=== PATIENT | male | born 1965 | race Caucasian/White ===

== ENCOUNTER 2022-04-14 20:08 | Observation (INO) | payer OTHER ==
[~2022-04-14] VITALS: Ht 172.7 cm; Wt 152.4 kg
[~2022-04-14 20:08] MED LIST: ANORO ELLIPTA1 EACH INH; ASPIRIN EC81 MG PO; BUSPIRONE HCL30 MG PO; CITALOPRAM HBR40 MG PO; COREG12.5 MG PO; FENOFIBRATE160 MG PO; GLUCOPHAGE 500500 MG PO; HYDROXYZINE HCL50 MG PO; LIPITOR80 MG PO; NITROSTAT0.4 MG SL; POTASSIUM CHLO10 MEQ PO; PRINIVIL20 MG PO; QUETIAPINE FUMA25 MG PO; SINGULAIR10 MG PO; TIROSINT25 MCG PO; WELLBUTRIN SR150 M1 PO; ZANAFLEX4 M1 PO
[2022-04-14 20:44] LABS: HEMOGLOBIN 13.3 gm/dl (14.0-17.5); RED BLOOD COUNT 4.34 M/UL (4.20-5.50); WHITE BLOOD COUNT 9.2 K/UL (4.5-11.0)
[2022-04-14 21:15] LABS: BUN/CREATININE RATIO 17 (0-10)
[2022-04-15 04:23] LABS: HEMOGLOBIN 13.3 gm/dl (14.0-17.5); RED BLOOD COUNT 4.37 M/UL (4.20-5.50)
[2022-04-15 04:48] LABS: BUN/CREATININE RATIO 13 (0-10)
[2022-04-15] MEDS ORDERED: CLONIDINE HCL0.1 MG PO (10:37)
[2022-04-15] MEDS ORDERED: DICYCLOMINE HCL10 MG PO (10:37)
[2022-04-15] MEDS ORDERED: GLIMEPIRIDE4 MG PO (10:38)
[2022-04-15] MEDS ORDERED: LOPERAMIDE2 MG PO (10:38)
[2022-04-15] MEDS ORDERED: DOCUSATE SODIU100 MG PO (10:38)
[2022-04-15] MEDS ORDERED: ONDANSETRON ODT4 MG PO (10:39)
[2022-04-15] MEDS ORDERED: MULTIVITAMIN1 EACH PO (10:39)
[2022-04-15] MEDS ORDERED: CYCLOBENZAPRINE10 MG PO (10:39)
[2022-04-15] MEDS ORDERED: FOLIC ACID1 MG PO (10:40)
[2022-04-15] MEDS ORDERED: HYDROXYZINE PAM25 MG PO (10:40)
[2022-04-15] MEDS ORDERED: IBU400 MG PO (10:41)
[2022-04-15] MEDS ORDERED: OMEPRAZOLE20 MG PO (10:41)
[2022-04-15] MEDS ORDERED: MELATONIN5 M2 PO (10:41)
[2022-04-15] MEDS ORDERED: B-1100 MG PO (10:41)
[2022-04-15] MEDS ORDERED: CRESTOR40 MG PO (10:42)
[2022-04-15] MEDS ORDERED: PROZAC20 MG PO (10:42)
[2022-04-15] MEDS ORDERED: ISOSORBIDE MONO60 MG PO (10:43)
[2022-04-15] MEDS ORDERED: PROAIR HFA8.5 GM INH (10:43)
--- NOTE | 2022-04-15 14:10 | NUR ---
[facility] for transportation. pt will be returning to their facility
== END 2022-04-15 15:20 | disposition home or self-care (01) ==
LOC: ER1 20:08 → CDU 23:52 → MED SURG 4 23:52
PROVIDERS: Physician Assistant; Student in an Organized Health Care Education/Training Program; ADMIT Internal Medicine
DX: R07.89 Other chest pain (principal); J96.11 Chronic respiratory failure with hypoxia; I25.10 Atherosclerotic heart disease of native coronary artery without angina pectoris; I10 Essential (primary) hypertension; I25.2 Old myocardial infarction; E11.9 Type 2 diabetes mellitus without complications; J44.9 Chronic obstructive pulmonary disease, unspecified; E78.5 Hyperlipidemia, unspecified; E03.9 Hypothyroidism, unspecified; F17.210 Nicotine dependence, cigarettes, uncomplicated; F10.10 Alcohol abuse, uncomplicated; E66.01 Morbid (severe) obesity due to excess calories; Z68.43 Body mass index [BMI] 50.0-59.9, adult; Z99.81 Dependence on supplemental oxygen; Z95.5 Presence of coronary angioplasty implant and graft; Z79.890 Hormone replacement therapy; Z79.84 Long term (current) use of oral hypoglycemic drugs; Z79.82 Long term (current) use of aspirin; Z79.899 Other long term (current) drug therapy
CPT/HCPCS: 36415; 71045; 80053; 80061; 82550; 82553; 83036; 83735; 84439; 84443; 84484; 85025; 93005; 96372; 99285; G0378; J1644

== ENCOUNTER 2022-04-19 04:46 | Emergency (ER) | payer OTHER ==
[~2022-04-19 04:46] MED LIST changes: +B-1100 MG PO; +CLONIDINE HCL0.1 MG PO; +CRESTOR40 MG PO; +CYCLOBENZAPRINE10 MG PO; +DICYCLOMINE HCL10 MG PO; +DOCUSATE SODIU100 MG PO; +FOLIC ACID1 MG PO; +GLIMEPIRIDE4 MG PO; +HYDROXYZINE PAM25 MG PO; +IBU400 MG PO; +ISOSORBIDE MONO60 MG PO; +LOPERAMIDE2 MG PO; +MELATONIN5 M2 PO; +MULTIVITAMIN1 EACH PO; +OMEPRAZOLE20 MG PO; +ONDANSETRON ODT4 MG PO; +PROAIR HFA8.5 GM INH; +PROZAC20 MG PO
[2022-04-19 05:19] LABS: HEMOGLOBIN 14.7 gm/dl (14.0-17.5); RED BLOOD COUNT 4.78 M/UL (4.20-5.50); WHITE BLOOD COUNT 8.9 K/UL (4.5-11.0)
[2022-04-19 06:03] LABS: BUN/CREATININE RATIO 20 (0-10)
[2022-04-19] MEDS ORDERED: VISTARIL25 MG PO (09:00)
== END 2022-04-19 09:40 | disposition home or self-care (01) ==
LOC: ER1 04:46
PROVIDERS: Family Medicine
DX: R07.89 Other chest pain (principal); F41.9 Anxiety disorder, unspecified; E11.9 Type 2 diabetes mellitus without complications; E78.5 Hyperlipidemia, unspecified; I10 Essential (primary) hypertension; J44.9 Chronic obstructive pulmonary disease, unspecified; F17.210 Nicotine dependence, cigarettes, uncomplicated; Z95.5 Presence of coronary angioplasty implant and graft; Z87.898 Personal history of other specified conditions
CPT/HCPCS: 71045; 80053; 82550; 82553; 84484; 85025; 93005; 96374; 99285; J3411; J7030; Q0177

== ENCOUNTER 2022-04-21 20:54 | Emergency (ER) | payer OTHER ==
[~2022-04-21 20:54] MED LIST changes: +VISTARIL25 MG PO
[2022-04-21 21:16] LABS: HEMOGLOBIN 13.9 gm/dl (14.0-17.5); RED BLOOD COUNT 4.48 M/UL (4.20-5.50); WHITE BLOOD COUNT 10.1 K/UL (4.5-11.0)
[2022-04-21 21:39] LABS: BUN/CREATININE RATIO 24 (0-10)
== END 2022-04-22 04:20 | disposition home or self-care (01) ==
LOC: ER1 20:54
PROVIDERS: Nurse Practitioner
DX: R07.89 Other chest pain (principal); I11.9 Hypertensive heart disease without heart failure; E11.9 Type 2 diabetes mellitus without complications; I25.2 Old myocardial infarction; E78.5 Hyperlipidemia, unspecified; F17.210 Nicotine dependence, cigarettes, uncomplicated; J44.9 Chronic obstructive pulmonary disease, unspecified; E66.01 Morbid (severe) obesity due to excess calories; Z95.5 Presence of coronary angioplasty implant and graft
CPT/HCPCS: 71045; 80053; 81001; 82550; 82553; 83735; 83880; 84100; 84484; 85025; 93005; 99285

== ENCOUNTER 2022-04-27 03:34 | Inpatient (IN) | payer OTHER ==
[~2022-04-27] VITALS: Ht 172.7 cm; Wt 153.3 kg
[2022-04-27 04:28] LABS: HEMOGLOBIN 14.2 gm/dl (14.0-17.5); RED BLOOD COUNT 4.79 M/UL (4.20-5.50); WHITE BLOOD COUNT 8.5 K/UL (4.5-11.0)
[2022-04-27 04:57] LABS: BUN/CREATININE RATIO 17 (0-10)
[2022-04-27] MEDS ORDERED: ADVAIR 500-501 EACH INH (09:59)
[2022-04-27] MEDS ORDERED: TRAZODONE HCL50 MG PO (10:01)
[2022-04-28 06:09] LABS: HEMOGLOBIN 14.6 gm/dl (14.0-17.5); RED BLOOD COUNT 4.74 M/UL (4.20-5.50); WHITE BLOOD COUNT 9.7 K/UL (4.5-11.0)
[2022-04-28 06:31] LABS: BUN/CREATININE RATIO 20 (0-10)
[2022-04-28 08:52] LABS: BUN/CREATININE RATIO 18 (0-10)
--- NOTE | 2022-04-28 10:15 | NUR ---
MULTIPLE ATTEMPTS TO GET IV ACCESS DONE BY FLOOR NURSES. NETTING INSPECTOR NURSE ATTEMPTING TO OBTAIN IV.
--- NOTE | 2022-04-28 10:30 | NUR ---
OIL FILTERS INSPECTOR NURSE TRIED IV TWICE, NO SUCCESS.
[2022-04-29 07:30] LABS: HEMOGLOBIN 13.5 gm/dl (14.0-17.5); RED BLOOD COUNT 4.58 M/UL (4.20-5.50); WHITE BLOOD COUNT 10.6 K/UL (4.5-11.0)
[2022-04-29 07:40] LABS: BUN/CREATININE RATIO 20 (0-10)
--- NOTE | 2022-04-29 13:21 | NUR ---
REPORT GIVEN TO VAENSSA AT [address]
== END 2022-04-29 15:04 | disposition short-term general hospital (02) | DRG 287 ==
LOC: ER1 03:34 → MED SURG 4 07:23 → CDU 07:23 → MED SURG 4 21:54 → PROG CARE 04-28 14:46
PROVIDERS: Internal Medicine; Physician Assistant; ADMIT Internal Medicine
PROC: 4A023N7 Measurement of Cardiac Sampling and Pressure, Left Heart, Percutaneous Approach (ICD-10-PCS; principal; 2022-04-28)
PROC: B2111ZZ Fluoroscopy of Multiple Coronary Arteries using Low Osmolar Contrast (ICD-10-PCS; 2022-04-28)
PROC: B24BZZZ Ultrasonography of Heart with Aorta (ICD-10-PCS; 2022-04-29)
DX: I25.110 Atherosclerotic heart disease of native coronary artery with unstable angina pectoris (principal); E87.2 Acidosis; J96.11 Chronic respiratory failure with hypoxia; Z20.822 Contact with and (suspected) exposure to COVID-19; Z68.43 Body mass index [BMI] 50.0-59.9, adult; E87.5 Hyperkalemia; J44.9 Chronic obstructive pulmonary disease, unspecified; F10.10 Alcohol abuse, uncomplicated; F31.9 Bipolar disorder, unspecified; F41.9 Anxiety disorder, unspecified; F17.210 Nicotine dependence, cigarettes, uncomplicated; G47.33 Obstructive sleep apnea (adult) (pediatric); E78.5 Hyperlipidemia, unspecified; E03.9 Hypothyroidism, unspecified; E66.01 Morbid (severe) obesity due to excess calories; Z99.81 Dependence on supplemental oxygen; Z79.01 Long term (current) use of anticoagulants; Z79.82 Long term (current) use of aspirin; Z95.5 Presence of coronary angioplasty implant and graft; Z90.49 Acquired absence of other specified parts of digestive tract; Z83.3 Family history of diabetes mellitus; Z82.49 Family history of ischemic heart disease and other diseases of the circulatory system
CPT/HCPCS: ECHO; 36415; 71045; 80048; 80053; 82550; 82553; 82962; 83735; 84132; 84484; 85025; 85027; 85730; 93005; 93306; 94640; 94660; 94664; 94760; 96365; 96375; 96376; 99152; 99153; 99285; C1769; G0378; J0610; J1335; J1644; J2250; J2370; J3010; J7040; Q0177; Q9957; Q9967

== ENCOUNTER 2022-06-21 11:29 | Observation (INO) | payer OTHER ==
[~2022-06-21] VITALS: Ht 172.7 cm; Wt 149.7 kg
[~2022-06-21 11:29] MED LIST changes: +ADVAIR 500-501 EACH INH; +LEVOTHYROXINE25 MCG PO; -TIROSINT25 MCG PO; +TRAZODONE HCL100 MG PO
[2022-06-21 12:06] LABS: HEMOGLOBIN 12.6 gm/dl (14.0-17.5); RED BLOOD COUNT 4.47 M/UL (4.20-5.50); WHITE BLOOD COUNT 10.8 K/UL (4.5-11.0)
[2022-06-21 12:45] LABS: BUN/CREATININE RATIO 16 (0-10)
[2022-06-21] MEDS ORDERED: LISINOPRIL10 MG PO (17:30)
[2022-06-21] MEDS ORDERED: ELIQUIS5 MG PO (17:33)
[2022-06-22 02:31] LABS: HEMOGLOBIN 11.5 gm/dl (14.0-17.5); RED BLOOD COUNT 4.11 M/UL (4.20-5.50); WHITE BLOOD COUNT 8.3 K/UL (4.5-11.0)
[2022-06-22 02:59] LABS: BUN/CREATININE RATIO 16 (0-10)
[2022-06-22] MEDS ORDERED: LIPITOR80 MG PO (12:34)
[2022-06-22] MEDS ORDERED: ISOSORBIDE MONO60 MG PO (12:34)
[2022-06-22] MEDS ORDERED: LISINOPRIL10 MG PO (12:34)
[2022-06-22] MEDS ORDERED: ASPIRIN EC81 MG PO (12:34)
[2022-06-22] MEDS ORDERED: ELIQUIS5 MG PO (12:34)
[2022-06-22] MEDS ORDERED: COREG12.5 MG PO (12:34)
[2022-06-22] MEDS ORDERED: LEVOTHYROXINE25 MCG PO (12:34)
== END 2022-06-22 21:09 | disposition other institution (70) ==
LOC: ER1 11:29 → M/S 16:30 → CDU 16:30 → M/S 18:20
PROVIDERS: Physician Assistant; ADMIT Internal Medicine
DX: R07.89 Other chest pain (principal); I25.10 Atherosclerotic heart disease of native coronary artery without angina pectoris; I10 Essential (primary) hypertension; E78.5 Hyperlipidemia, unspecified; J44.9 Chronic obstructive pulmonary disease, unspecified; E03.9 Hypothyroidism, unspecified; G47.33 Obstructive sleep apnea (adult) (pediatric); F17.210 Nicotine dependence, cigarettes, uncomplicated; E11.9 Type 2 diabetes mellitus without complications; F10.10 Alcohol abuse, uncomplicated; E66.01 Morbid (severe) obesity due to excess calories; Z68.43 Body mass index [BMI] 50.0-59.9, adult; Z79.01 Long term (current) use of anticoagulants; Z79.51 Long term (current) use of inhaled steroids; Z79.82 Long term (current) use of aspirin; Z79.890 Hormone replacement therapy; Z79.899 Other long term (current) drug therapy; Z86.718 Personal history of other venous thrombosis and embolism; Z86.711 Personal history of pulmonary embolism; Z95.1 Presence of aortocoronary bypass graft; Z95.5 Presence of coronary angioplasty implant and graft; Z91.018 Allergy to other foods
CPT/HCPCS: 71045; 80048; 80053; 82550; 82553; 82962; 83690; 83735; 84484; 85025; 85379; 93005; 94660; 94664; 94760; 96374; 96375; 99285; G0378; J2405; J3411; J3475; J7030; Q9957; Q9967

== ENCOUNTER 2022-07-24 17:08 | Emergency (ER) | payer OTHER ==
[~2022-07-24 17:08] MED LIST changes: +ELIQUIS5 MG PO; +LISINOPRIL10 MG PO
[2022-07-24 20:12] LABS: HEMOGLOBIN 13.6 gm/dl (14.0-17.5); RED BLOOD COUNT 4.87 M/UL (4.20-5.50); WHITE BLOOD COUNT 13.3 K/UL (4.5-11.0)
[2022-07-24 20:25] LABS: BUN/CREATININE RATIO 21 (0-10)
== END 2022-07-24 22:11 | disposition home or self-care (01) ==
LOC: ER1 17:08
PROVIDERS: Nurse Practitioner
DX: R10.9 Unspecified abdominal pain (principal); R10.31 Right lower quadrant pain; E66.9 Obesity, unspecified; I25.2 Old myocardial infarction; E11.9 Type 2 diabetes mellitus without complications; E78.5 Hyperlipidemia, unspecified; I10 Essential (primary) hypertension; J44.9 Chronic obstructive pulmonary disease, unspecified; F17.210 Nicotine dependence, cigarettes, uncomplicated; Z95.1 Presence of aortocoronary bypass graft
CPT/HCPCS: 80053; 80076; 81001; 83605; 83690; 85025; 96374; 96375; 99284; J1885; J2405; Q9967

== ENCOUNTER 2022-08-10 09:07 | Emergency (ER) | payer OTHER ==
[2022-08-10 10:26] LABS: HEMOGLOBIN 9.9 gm/dl (14.0-17.5); RED BLOOD COUNT 3.59 M/UL (4.20-5.50); WHITE BLOOD COUNT 8.2 K/UL (4.5-11.0)
[2022-08-10 11:00] LABS: BUN/CREATININE RATIO 17 (0-10)
[2022-08-10] MEDS ORDERED: PROVENTIL HFA6.7 GM INH (11:47)
[2022-08-10] MEDS ORDERED: DOXYCYCLINE HY100 MG PO (11:47)
== END 2022-08-10 11:55 | disposition left against medical advice (07) ==
LOC: ER1 09:07 → CDU 11:30
PROVIDERS: Emergency Medicine
DX: A41.9 Sepsis, unspecified organism (principal); R65.10 Systemic inflammatory response syndrome (SIRS) of non-infectious origin without acute organ dysfunction; J44.1 Chronic obstructive pulmonary disease with (acute) exacerbation; E11.9 Type 2 diabetes mellitus without complications; I10 Essential (primary) hypertension; Z20.822 Contact with and (suspected) exposure to COVID-19; I25.10 Atherosclerotic heart disease of native coronary artery without angina pectoris; Z95.1 Presence of aortocoronary bypass graft; F17.200 Nicotine dependence, unspecified, uncomplicated
CPT/HCPCS: 36600; 71045; 80053; 81001; 82550; 82553; 82803; 83605; 83880; 84484; 85025; 87040; 93005; 96374; 99285; J0696; U0002